=== PATIENT | female | born 1950 | race Caucasian/White ===

== ENCOUNTER 2020-05-25 08:21 | Inpatient (IN) | payer MEDICARE, OTHER ==
[~2020-05-25] VITALS: Ht 160 cm; Wt 49.9 kg
[2020-05-25 10:05] LABS: BASOPHILS % (AUTO) 0.3 % (0.0-2.0); HEMATOCRIT 35 % (33-45); HEMOGLOBIN 11.7 g/dL (11.5-14.8); LYMPHOCYTES # (AUTO) 0.6 /CMM (0.8-4.8); LYMPHOCYTES % (AUTO) 8.3 % (20.0-44.0); MEAN CORPUSCULAR HGB CONC 34 g/dl (31.0-36.0); MEAN CORPUSCULAR VOLUME 85 fL (82-100); MONOCYTES # (AUTO) 0.4 /CMM (0.1-1.30); MONOCYTES % (AUTO) 4.9 % (2.0-12.0); NEUTROPHILS # (AUTO) 6.2 /CMM (1.8-8.9); NEUTROPHILS % (AUTO) 86.5 % (43.0-81.0); PLATELET COUNT (AUTO) 277 /CMM (150-450); RED BLOOD CELL COUNT(AUTO) 4.12 MIL/uL (4.0-5.2); WHITE BLOOD COUNT (AUTO) 7.2 K/uL (4.3-11.0)
[2020-05-25 10:16] LABS: CALCIUM, SERUM 8.4 mg/dL (8.5-10.1); CREATININE 0.7 mg/dL (0.6-1.3); POTASSIUM 3.4 mmol/L (3.5-5.1)
[2020-05-25] MEDS ORDERED: DEXAMETHASONE SOD PHOSPHATE 10 MG/ML VIAL ONE (10:27)
[2020-05-25] MEDS ORDERED: CEFEPIME 1 GM in IV D5W 50 ML IV ONE (10:30)
[2020-05-25] MEDS ORDERED: VANCOMYCIN 1 GM in IV D5W 250 ML IV ONE (10:30)
[2020-05-25] MEDS ORDERED: DEXAMETHASONE SOD PHOSPHATE 10 MG/ML VIAL IV ONE (10:30)
[2020-05-25 10:32] LABS: ALBUMIN 2.9 g/dL (3.4-5.0); BILIRUBIN,TOTAL 0.5 mg/dL (0.2-1.0); TOTAL PROTEIN, SERUM 7.8 g/dL (6.4-8.2)
--- NOTE | 2020-05-25 11:00 | NUR ---
PAGED [facility].
[2020-05-25 12:16] LABS: D-DIMER 0.68 mg/L(FEU (0.17-0.50)
[2020-05-25 12:29] LABS: C-REACTIVE PROTEIN 12.2 mg/dL (0.0-0.9)
[2020-05-25] MEDS ORDERED: MAGNESIUM HYDROXIDE 30 ML UDC PO PRN (12:30)
[2020-05-25] MEDS ORDERED: MAG HYDROX/AL HYDROX/SIMETH 30 ML UDC PO PRN (12:30)
[2020-05-25] MEDS ORDERED: Z GUARD REMEDY 2 OZ OINT TP PRN (12:30)
[2020-05-25] MEDS ORDERED: ONDANSETRON HCL/PF 4 MG/2 ML VIAL IVP PRN (12:30)
[2020-05-25] MEDS ORDERED: ACETAMINOPHEN 325 MG TABLET PO PRN (12:30)
[2020-05-25] MEDS ORDERED: POTASSIUM CHLORIDE 20 MEQ TAB.PRT.SR PO ONE ×2 (14:00→14:29)
[2020-05-25] MEDS ORDERED: ALEN70TA69 PO (16:39)
[2020-05-25] MEDS ORDERED: PANT40TA49 PO (16:39)
[2020-05-25] MEDS ORDERED: INSU100I26 SQ (16:39)
[2020-05-25] MEDS ORDERED: METF-440 PO (16:39)
[2020-05-25] MEDS ORDERED: [UNRECOGNIZED DRUG - CODE] PO (16:39)
[2020-05-25] MEDS ORDERED: AZITHROMYCIN 500 MG in IV D5W 250 ML IV ONE (20:00)
--- NOTE | 2020-05-25 20:47 | NUR ---
LIYAID SWABBED, SENT TO LAB.
[2020-05-25] MEDS ORDERED: ENOXAPARIN SODIUM 40 MG/0.4 ML DISP.SYRIN SQ ONE (20:53)
[2020-05-25] MEDS: CEFTRIAXONE 1 G in IV D5W 50 ML IV SCH (21:00)
[2020-05-25] MEDS: ENOXAPARIN SODIUM 40 MG/0.4 ML DISP.SYRIN SQ SCH (21:01)
--- NOTE | 2020-05-25 21:44 | NUR ---
PT ON 4L NC.
--- NOTE | 2020-05-25 22:21 | NUR ---
lab called regarding positive covid result.
--- NOTE | 2020-05-26 01:03 | NUR ---
PT AMBULATED TO THE RESTROOM AND BACK.
[2020-05-26] MEDS ORDERED: ZOLPIDEM TARTRATE 5 MG TABLET ONE ×2 (01:50→22:02)
[2020-05-26] MEDS: ZOLPIDEM TARTRATE 5 MG TABLET PO PRN ×2 (01:57→22:13)
--- NOTE | 2020-05-26 04:02 | NUR ---
PT RESTING COMFORTABLY. VSS. PROVIDED WITH BLANKETS.
[2020-05-26 05:08] LABS: BASOPHILS % (AUTO) 0.3 % (0.0-2.0); HEMATOCRIT 35 % (33-45); HEMOGLOBIN 11.5 g/dL (11.5-14.8); LYMPHOCYTES # (AUTO) 0.6 /CMM (0.8-4.8); LYMPHOCYTES % (AUTO) 6.3 % (20.0-44.0); MEAN CORPUSCULAR HGB CONC 33 g/dl (31.0-36.0); MEAN CORPUSCULAR VOLUME 85 fL (82-100); MONOCYTES # (AUTO) 0.5 /CMM (0.1-1.30); MONOCYTES % (AUTO) 5.2 % (2.0-12.0); NEUTROPHILS # (AUTO) 8.1 /CMM (1.8-8.9); NEUTROPHILS % (AUTO) 88.2 % (43.0-81.0); PLATELET COUNT (AUTO) 283 /CMM (150-450); RED BLOOD CELL COUNT(AUTO) 4.11 MIL/uL (4.0-5.2); WHITE BLOOD COUNT (AUTO) 9.1 K/uL (4.3-11.0)
[2020-05-26 05:24] LABS: CALCIUM, SERUM 8.8 mg/dL (8.5-10.1); CREATININE 0.6 mg/dL (0.6-1.3); MAGNESIUM 2.7 mg/dL (1.8-2.4); PHOSPHORUS 4.2 mg/dL (2.5-4.9); POTASSIUM 3.6 mmol/L (3.5-5.1)
--- NOTE | 2020-05-26 07:18 | NUR ---
REPORT GIVEN TO DIONNA YANEZ FOR [facility]
--- NOTE | 2020-05-26 08:35 | NUR ---
pt in bed sleeping. easily arrousable. nad noted. breathing even and unlabored. on o2 via nc @ 4lpm.
[2020-05-26] MEDS ORDERED: DEXAMETHASONE SOD PHOSPHATE 10 MG/ML VIAL ONE (09:16)
[2020-05-26] MEDS: DEXAMETHASONE SOD PHOSPHATE 10 MG/ML VIAL IV SCH (10:00)
--- NOTE | 2020-05-26 10:23 | NUR ---
dr freedman at bedside
[2020-05-26] MEDS ORDERED: REMDESIVIR (CHARGED) 200 MG, *LOADING DOSE 1 EA in IV NS 0.9% 210 ML IV ONE (15:00)
[2020-05-26] MEDS ORDERED: AZITHROMYCIN 500 MG in IV D5W 250 ML IV ONE (17:00)
[2020-05-26] MEDS ORDERED: AZITHROMYCIN 250 MG TABLET ONE (17:24)
--- NOTE | 2020-05-26 18:00 | NUR ---
pt provided with meal
[2020-05-26] MEDS: AZITHROMYCIN 250 MG TABLET PO SCH (18:26)
[2020-05-26] MEDS ORDERED: ENOXAPARIN SODIUM 40 MG/0.4 ML DISP.SYRIN SQ ONE (21:12)
[2020-05-26] MEDS: CEFTRIAXONE 1 G in IV D5W 50 ML IV SCH (21:17)
[2020-05-26] MEDS: ENOXAPARIN SODIUM 40 MG/0.4 ML DISP.SYRIN SQ SCH (21:18)
--- NOTE | 2020-05-26 22:56 | NUR ---
PLASMA TRANSFUSION STARTED. CONSENT OBTAIEND FROM PT. VERIFIED BY BEAU SHANKS.
--- NOTE | 2020-05-27 | NUR ---
BLOOD DTRANSFUSION COMPLETE
--- NOTE | 2020-05-27 00:51 | NUR ---
PT NOTED ASLEEP, VSS. ON MONITOR AND PULSE OX.
--- NOTE | 2020-05-27 03:37 | NUR ---
PT ASLEEP, VSS.
[2020-05-27 05:11] LABS: BASOPHILS % (AUTO) 0.2 % (0.0-2.0); HEMATOCRIT 33 % (33-45); HEMOGLOBIN 10.8 g/dL (11.5-14.8); LYMPHOCYTES # (AUTO) 0.6 /CMM (0.8-4.8); LYMPHOCYTES % (AUTO) 6.1 % (20.0-44.0); MEAN CORPUSCULAR HGB CONC 33 g/dl (31.0-36.0); MEAN CORPUSCULAR VOLUME 84 fL (82-100); MONOCYTES # (AUTO) 0.5 /CMM (0.1-1.30); MONOCYTES % (AUTO) 5.4 % (2.0-12.0); NEUTROPHILS # (AUTO) 8.8 /CMM (1.8-8.9); NEUTROPHILS % (AUTO) 88.3 % (43.0-81.0); PLATELET COUNT (AUTO) 330 /CMM (150-450); RED BLOOD CELL COUNT(AUTO) 3.89 MIL/uL (4.0-5.2); WHITE BLOOD COUNT (AUTO) 9.9 K/uL (4.3-11.0)
[2020-05-27 05:25] LABS: ALBUMIN 2.5 g/dL (3.4-5.0); BILIRUBIN,DIRECT 0.1 mg/dL (0.0-0.2); BILIRUBIN,TOTAL 0.4 mg/dL (0.2-1.0); CALCIUM, SERUM 8.9 mg/dL (8.5-10.1); CREATININE 0.5 mg/dL (0.6-1.3); POTASSIUM 3.6 mmol/L (3.5-5.1)
--- NOTE | 2020-05-27 07:28 | NUR ---
PT IN BED, AWAKE, VSS. REMAINS ON 4L NC SAT 93%.
[2020-05-27] MEDS ORDERED: DEXAMETHASONE SOD PHOSPHATE 10 MG/ML VIAL ONE (08:49)
[2020-05-27] MEDS ORDERED: HYDROCODONE/APAP 5/325MG TABLET ONE (08:49)
[2020-05-27] MEDS: DEXAMETHASONE SOD PHOSPHATE 10 MG/ML VIAL IV SCH (08:50)
[2020-05-27] MEDS: HYDROCODONE/APAP 5/325MG TABLET PO PRN (09:13)
[2020-05-27] MEDS ORDERED: REMDESIVIR (CHARGED) 100 MG in IV NS 0.9% 230 ML IV SCH (13:30)
[2020-05-27] MEDS: REMDESIVIR (CHARGED) 100 MG in IV NS 0.9% 100 ML IV SCH (15:00)
[2020-05-27] MEDS ORDERED: AZITHROMYCIN 250 MG TABLET ONE (16:56)
[2020-05-27] MEDS: AZITHROMYCIN 250 MG TABLET PO SCH (17:04)
[2020-05-27] MEDS: CEFTRIAXONE 1 G in IV D5W 50 ML IV SCH (21:10)
[2020-05-27] MEDS ORDERED: ENOXAPARIN SODIUM 40 MG/0.4 ML DISP.SYRIN SQ ONE (21:13)
[2020-05-27] MEDS: ENOXAPARIN SODIUM 40 MG/0.4 ML DISP.SYRIN SQ SCH (21:20)
--- NOTE | 2020-05-27 21:37 | NUR ---
PT AMBULATED TO THE RESTROOM. VSS.
--- NOTE | 2020-05-28 00:19 | NUR ---
PT AMBULATED TO THE RESTROOM AND BACK. AMBULATORY WITH STEADY GAIT.
--- NOTE | 2020-05-28 04:13 | NUR ---
PT NOTED ASLEEP, VSS.
[2020-05-28 06:07] LABS: BASOPHILS % (AUTO) 0.2 % (0.0-2.0); HEMATOCRIT 36 % (33-45); HEMOGLOBIN 11.8 g/dL (11.5-14.8); LYMPHOCYTES # (AUTO) 0.4 /CMM (0.8-4.8); LYMPHOCYTES % (AUTO) 6.8 % (20.0-44.0); MEAN CORPUSCULAR HGB CONC 33 g/dl (31.0-36.0); MEAN CORPUSCULAR VOLUME 86 fL (82-100); MONOCYTES # (AUTO) 0.8 /CMM (0.1-1.30); MONOCYTES % (AUTO) 12.8 % (2.0-12.0); NEUTROPHILS # (AUTO) 4.9 /CMM (1.8-8.9); NEUTROPHILS % (AUTO) 80.2 % (43.0-81.0); PLATELET COUNT (AUTO) 367 /CMM (150-450); RED BLOOD CELL COUNT(AUTO) 4.17 MIL/uL (4.0-5.2); WHITE BLOOD COUNT (AUTO) 6.1 K/uL (4.3-11.0)
[2020-05-28 06:25] LABS: ALBUMIN 2.6 g/dL (3.4-5.0); BILIRUBIN,DIRECT 0.1 mg/dL (0.0-0.2); BILIRUBIN,TOTAL 0.5 mg/dL (0.2-1.0); CALCIUM, SERUM 8.9 mg/dL (8.5-10.1); CREATININE 0.6 mg/dL (0.6-1.3); TOTAL PROTEIN, SERUM 7.4 g/dL (6.4-8.2)
--- NOTE | 2020-05-28 07:07 | NUR ---
PT AMBULATED TO THE RESTROOM VSS.
--- NOTE | 2020-05-28 07:23 | NUR ---
REPORT GIVEN TO NIKKI YANEZ FOR [facility]
[2020-05-28] MEDS ORDERED: HYDROCODONE/APAP 5/325MG TABLET ONE (08:39)
[2020-05-28] MEDS ORDERED: DEXAMETHASONE SOD PHOSPHATE 10 MG/ML VIAL ONE (08:39)
[2020-05-28] MEDS: DEXAMETHASONE SOD PHOSPHATE 10 MG/ML VIAL IV SCH (08:40)
[2020-05-28] MEDS: HYDROCODONE/APAP 5/325MG TABLET PO PRN (08:40)
[2020-05-28] MEDS: REMDESIVIR (CHARGED) 100 MG in IV NS 0.9% 100 ML IV SCH (15:00)
[2020-05-28] MEDS ORDERED: AZITHROMYCIN 250 MG TABLET ONE (16:28)
[2020-05-28] MEDS: AZITHROMYCIN 250 MG TABLET PO SCH (17:17)
--- NOTE | 2020-05-28 19:43 | NUR ---
RESTING COMFORTABLY. VSS.
[2020-05-28] MEDS ORDERED: ENOXAPARIN SODIUM 40 MG/0.4 ML DISP.SYRIN SQ ONE (21:22)
[2020-05-28] MEDS: ENOXAPARIN SODIUM 40 MG/0.4 ML DISP.SYRIN SQ SCH (21:24)
[2020-05-28] MEDS: CEFTRIAXONE 1 G in IV D5W 50 ML IV SCH (21:24)
[2020-05-28] MEDS ORDERED: ZOLPIDEM TARTRATE 5 MG TABLET ONE (22:05)
[2020-05-28] MEDS: ZOLPIDEM TARTRATE 5 MG TABLET PO PRN (22:06)
--- NOTE | 2020-05-28 22:30 | NUR ---
PT AMBULATED TO THE RESTROOM AND BACK.
--- NOTE | 2020-05-29 01:34 | NUR ---
PT AMBULATED TO THE RESTROOM, VSS.
--- NOTE | 2020-05-29 04:54 | NUR ---
PT RESTING COMFORTABLY. VSS.
[2020-05-29 05:26] LABS: ABG BASE EXCESS 2.1 mmol/L; ABG OXYGEN SATURATION 95.2 % (92.0-98.5); ABG PH 7.437 (7.350-7.450); AaDO2 157.2 mmHg; COHb 0.2 % (0.5-1.5); MetHb 0.4 % (0.0-1.5); O2Hb 94.6 % (94.0-97.0); SITE, ABG Right Radial; VENT MODE, BG 5 LNC
[2020-05-29] MEDS ORDERED: DEXAMETHASONE SOD PHOSPHATE 10 MG/ML VIAL ONE (08:12)
[2020-05-29] MEDS: DEXAMETHASONE SOD PHOSPHATE 10 MG/ML VIAL IV SCH (08:51)
[2020-05-29 09:47] LABS: BASOPHILS % (AUTO) 0.5 % (0.0-2.0); EOSINOPHILS % (AUTO) 0.1 % (0.0-6.0); HEMATOCRIT 38 % (33-45); HEMOGLOBIN 12.2 g/dL (11.5-14.8); LYMPHOCYTES # (AUTO) 0.6 /CMM (0.8-4.8); MEAN CORPUSCULAR HGB CONC 32 g/dl (31.0-36.0); MEAN CORPUSCULAR VOLUME 87 fL (82-100); MONOCYTES # (AUTO) 0.6 /CMM (0.1-1.30); MONOCYTES % (AUTO) 7.2 % (2.0-12.0); NEUTROPHILS # (AUTO) 6.6 /CMM (1.8-8.9); NEUTROPHILS % (AUTO) 84.2 % (43.0-81.0); PLATELET COUNT (AUTO) 433 /CMM (150-450); RED BLOOD CELL COUNT(AUTO) 4.41 MIL/uL (4.0-5.2); WHITE BLOOD COUNT (AUTO) 7.8 K/uL (4.3-11.0)
[2020-05-29 10:19] LABS: ALBUMIN 2.8 g/dL (3.4-5.0); BILIRUBIN,TOTAL 0.6 mg/dL (0.2-1.0); CALCIUM, SERUM 9.4 mg/dL (8.5-10.1); CREATININE 0.7 mg/dL (0.6-1.3); POTASSIUM 4.1 mmol/L (3.5-5.1); TOTAL PROTEIN, SERUM 7.4 g/dL (6.4-8.2)
[2020-05-29 10:33] LABS: BILIRUBIN,DIRECT 0.1 mg/dL (0.0-0.2)
[2020-05-29] MEDS: REMDESIVIR (CHARGED) 100 MG in IV NS 0.9% 100 ML IV SCH (14:45)
[2020-05-29] MEDS ORDERED: AZITHROMYCIN 250 MG TABLET ONE (17:06)
[2020-05-29] MEDS: AZITHROMYCIN 250 MG TABLET PO SCH (17:15)
--- NOTE | 2020-05-29 20:06 | NUR ---
ASSUMED CARE. PT AAOX3, NO ACUTE DISTRESS NOTED, RESP EVEN AND UNLABORED. NO PAIN OR DISCOMFORT NOTED AT THIS TIME. PT REMAINS ON CARDIAC MONITORING, CONTINUOUS POX. CALL LIGHT WITHIN REACH. WILL CONTINUE TO MONITOR PT CLOSELY.
[2020-05-29] MEDS ORDERED: ENOXAPARIN SODIUM 40 MG/0.4 ML DISP.SYRIN SQ ONE (20:58)
[2020-05-29] MEDS: CEFTRIAXONE 1 G in IV D5W 50 ML IV SCH (21:00)
[2020-05-29] MEDS: ENOXAPARIN SODIUM 40 MG/0.4 ML DISP.SYRIN SQ SCH (21:03)
--- NOTE | 2020-05-29 21:05 | NUR ---
PT MEDDICATED ORDERED. KEPT PT COMFORTABLE. CALL LIGHT WITHIN REACH.
[2020-05-29] MEDS ORDERED: ZOLPIDEM TARTRATE 5 MG TABLET ONE (22:41)
[2020-05-29] MEDS: ZOLPIDEM TARTRATE 5 MG TABLET PO PRN (23:04)
--- NOTE | 2020-05-29 23:21 | NUR ---
PT AMBULATORY TO THE RESTROOM WITH STEADY GAIT NOTED. PT AAOX4 NO ACUTE DISTRESS NOTED, RESP EVEN AND UNLABORED.
--- NOTE | 2020-05-30 00:26 | NUR ---
PT ASLEEP, NO ACUTE DISTRESS NOTED, RESP EVEN AND UNLABORED. NO PAIN OR DISCOMFORT NOTED AT THIS TIME. CALL LIGHT WITHIN REACH. WILL CONTINUE TO MONITOR PT.
--- NOTE | 2020-05-30 06:25 | NUR ---
PT AMBULATORY TO THE RESTROOM WITH STEADY GAIT NOTED. PT AAOX4 NO ACUTE DISTRESS NOTED, RESP EVEN AND UNLABORED.
[2020-05-30 06:39] LABS: BASOPHILS % (AUTO) 0.1 % (0.0-2.0); EOSINOPHILS % (AUTO) 0.1 % (0.0-6.0); HEMATOCRIT 36 % (33-45); HEMOGLOBIN 11.8 g/dL (11.5-14.8); LYMPHOCYTES # (AUTO) 0.9 /CMM (0.8-4.8); LYMPHOCYTES % (AUTO) 15.2 % (20.0-44.0); MEAN CORPUSCULAR HGB CONC 33 g/dl (31.0-36.0); MEAN CORPUSCULAR VOLUME 85 fL (82-100); MONOCYTES # (AUTO) 0.5 /CMM (0.1-1.30); MONOCYTES % (AUTO) 9.7 % (2.0-12.0); NEUTROPHILS # (AUTO) 4.2 /CMM (1.8-8.9); NEUTROPHILS % (AUTO) 74.9 % (43.0-81.0); PLATELET COUNT (AUTO) 458 /CMM (150-450); RED BLOOD CELL COUNT(AUTO) 4.25 MIL/uL (4.0-5.2); WHITE BLOOD COUNT (AUTO) 5.7 K/uL (4.3-11.0)
[2020-05-30 06:56] LABS: ALBUMIN 2.8 g/dL (3.4-5.0); BILIRUBIN,DIRECT 0.2 mg/dL (0.0-0.2); BILIRUBIN,TOTAL 0.5 mg/dL (0.2-1.0); CALCIUM, SERUM 9.4 mg/dL (8.5-10.1); CREATININE 0.6 mg/dL (0.6-1.3); POTASSIUM 4.5 mmol/L (3.5-5.1); TOTAL PROTEIN, SERUM 7.2 g/dL (6.4-8.2)
[2020-05-30] MEDS: DEXAMETHASONE SOD PHOSPHATE 10 MG/ML VIAL IV SCH (09:41)
[2020-05-30] MEDS: HYDROCODONE/APAP 5/325MG TABLET PO PRN (10:12)
[2020-05-30] MEDS: REMDESIVIR (CHARGED) 100 MG in IV NS 0.9% 100 ML IV SCH (14:30)
--- NOTE | 2020-05-30 19:19 | NUR ---
ASSUMED CARE. PT AAOX4 ON CARDIAC MONITORING, CONTINUOUS POX. O2 SAT 98%ON 2L/NC. SKIN WARM, NONDIAPHORETIC. PT DENIES PAIN OR DISCOMFORT. CALL LIGHT WITHIN REACH. WILL CONTINUE TO MONITOR PT.
[2020-05-30] MEDS: CEFTRIAXONE 1 G in IV D5W 50 ML IV SCH (20:00)
[2020-05-30] MEDS: ENOXAPARIN SODIUM 40 MG/0.4 ML DISP.SYRIN SQ SCH (20:00)
--- NOTE | 2020-05-30 23:19 | NUR ---
PT AMBULATORY TO THE RESTROOM WITH STEADY GAIT NOTED. PT AAOX4 NO ACUTE DISTRESS NOTED, RESP EVEN AND UNLABORED. PT DENIES PAIN OR DISCOMFORT AT THIS TIME.
[2020-05-31] MEDS: ZOLPIDEM TARTRATE 5 MG TABLET PO PRN (01:00)
--- NOTE | 2020-05-31 02:10 | NUR ---
PT ASLEEP, NO ACUTE DISTRESS NOTED, RESP EVEN AND UNLABORE. NO PAIN OR DISCOMFORT NOTED AT THIS TIME. CALL LIGHT WITHIN REACH. WILL CONTINUE TO MONITOR PT CLOSELY.
--- NOTE | 2020-05-31 03:50 | NUR ---
PT ASLEEP, NO ACUTE DISTRESS NOTED, RESP EVEN AND UNLABORED. CALL LIGHT WITHIN REACH.
--- NOTE | 2020-05-31 06:07 | NUR ---
PT AMBULATED TO THE RESTROOM WITH STEADY GAIT NOTED. PT AAOX4 NO ACUTE DISTRESS NOTED, RESP EVEN AND UNLABORED.
[2020-05-31 06:55] LABS: BASOPHILS % (AUTO) 0.3 % (0.0-2.0); EOSINOPHILS % (AUTO) 0.4 % (0.0-6.0); HEMATOCRIT 38 % (33-45); HEMOGLOBIN 12.3 g/dL (11.5-14.8); LYMPHOCYTES # (AUTO) 1.3 /CMM (0.8-4.8); LYMPHOCYTES % (AUTO) 16.4 % (20.0-44.0); MEAN CORPUSCULAR HGB CONC 33 g/dl (31.0-36.0); MEAN CORPUSCULAR VOLUME 85 fL (82-100); MONOCYTES # (AUTO) 0.6 /CMM (0.1-1.30); MONOCYTES % (AUTO) 7.3 % (2.0-12.0); NEUTROPHILS # (AUTO) 6.2 /CMM (1.8-8.9); NEUTROPHILS % (AUTO) 75.6 % (43.0-81.0); PLATELET COUNT (AUTO) 520 /CMM (150-450); RED BLOOD CELL COUNT(AUTO) 4.41 MIL/uL (4.0-5.2); WHITE BLOOD COUNT (AUTO) 8.2 K/uL (4.3-11.0)
[2020-05-31 07:37] LABS: BILIRUBIN,TOTAL 0.4 mg/dL (0.2-1.0); CALCIUM, SERUM 9.4 mg/dL (8.5-10.1); CREATININE 0.6 mg/dL (0.6-1.3); POTASSIUM 4.1 mmol/L (3.5-5.1); TOTAL PROTEIN, SERUM 7.2 g/dL (6.4-8.2)
--- NOTE | 2020-05-31 07:49 | NUR ---
REPORT GIVEN TO AM SHIFT BEAU AMADOR
[2020-05-31] MEDS: DEXAMETHASONE SOD PHOSPHATE 10 MG/ML VIAL IV SCH (08:36)
--- NOTE | 2020-05-31 08:44 | NUR ---
PATIENT A/OX4, BREATHING EVEN AND UNLABORED, AMBULATES TO RESTROOM, PATIENT ON ROOM AIR WITH SPO2 OF 91-92%. DENIES SOB. NEEDS ATTENDED. GIVEN BREAKFAST.
--- NOTE | 2020-05-31 10:39 | NUR ---
PATIENT A/OX4, WALKED UPTO ME, STATING SHE WANTS TO LEAVE NOW. EXPLAINED RISKS AND BENEFITS, STILL INSISTED ON LEAVING, PATIENT IS ALREADY DRESSED UP WITH HER BELONGINGS ON HER ARMS. CALLED DR. LAURA AND INFORMED HIM PATIENT WANTS TO LEAVE AMA. PATIENT SIGNED AMA FORM, AND SAID SHE'LL BE PICKED UP BY HER SON OR HER . PATIENT HAS NO DIFFICULTY BREATHING AT THIS TIME, AMBULATORY WITH STEADY GAIT. NO DISTRESS NOTED. Patient does not wish to proceed with medical care recommended by Dr. Laura. Patient given information related to possible complications, up to and including , which could occur as a result of leaving the hospital at this time. Patient verbalizes understanding of risks involved due to leaving against medical advice. Patient has signed AMA form.
--- NOTE | 2020-05-31 10:41 | NUR ---
IV removed. Catheter intact and site benign. Pressure and 4x4 applied to site. No bleeding noted.
[2020-05-31 10:48] VITALS: BP 126/68
== END 2020-05-31 10:48 | disposition left against medical advice (07) | DRG 177 ==
LOC: ER 09:12 → TRANSITION 18:15
PROVIDERS: ADMIT Family Medicine; ATTEND Internal Medicine
PROC: XW13325 Transfusion of Convalescent Plasma (Nonautologous) into Peripheral Vein, Percutaneous Approach, New Technology Group 5 (ICD-10-PCS; principal; 2020-05-26)
PROC: XW033E5 Introduction of Remdesivir Anti-infective into Peripheral Vein, Percutaneous Approach, New Technology Group 5 (ICD-10-PCS; 2020-05-26)
DX: U07.1 COVID-19 (principal); J96.01 Acute respiratory failure with hypoxia; J15.9 Unspecified bacterial pneumonia; J12.89 Other viral pneumonia; I21.4 Non-ST elevation (NSTEMI) myocardial infarction; E44.0 Moderate protein-calorie malnutrition; J90 Pleural effusion, not elsewhere classified; E87.1 Hypo-osmolality and hyponatremia; E11.65 Type 2 diabetes mellitus with hyperglycemia; Z88.8 Allergy status to other drugs, medicaments and biological substances; E86.1 Hypovolemia; E87.6 Hypokalemia
CPT/HCPCS: 36415; 36600; 71045-TC; 80048-TC; 80053-TC; 80061-TC; 80076-TC; 82550-TC; 82728-TC; 83605-TC; 83615-TC; 83735-TC; 83880; 84100-TC; 84484-TC; 85025-TC; 85378-TC; 85610-TC; 85730-TC; 86140-TC; 86850-TC; 87040-TC; 87081-TC; 93308-TC; A4216; G0378; J0456; J0692; J0696; J1100; J1650; J3370; J7030; J7050; J7060; P9017-BL; U0003